=== PATIENT | female | born 1995 | race Caucasian/White ===

== ENCOUNTER 2022-04-16 20:28 | Emergency (ER) | payer OTHER, SELFPAY ==
--- NOTE | ~2022-04-16 | XR_ITS ---
EXAMINATION: PORTABLE CHEST 1 VIEW CLINICAL INFORMATION: chest pain . COMPARISON: 12/22/2017. TECHNIQUE: Portable frontal view of the chest was obtained. FINDINGS: The lungs are mildly hypoexpanded. No focal infiltrate, effusion, edema, or pneumothorax. Cardiac and mediastinal silhouettes are within normal limits for technique. No acute bony abnormality seen. XR/XR chest 1V IMPRESSION: No evidence of acute disease.
[2022-04-16 20:31] VITALS: BP 130/80; PULSE 97; RESP 18; TEMP 36.9; O2SAT 100; BMI 35.5
--- NOTE | 2022-04-16 20:34 | ED_ITS ---
HPI - General Adult General Chief complaint: Chest Pain Stated complaint: chest pain Time Seen by Provider: 04/16/22 21:56 Related Data Allergies Allergy/AdvReac Type Severity Reaction Status Date / Time No Known Allergies Allergy Verified 04/16/22 20:35 [facility] Social History Social History Advance Directives: No Advance Directives Information Provided: No Physical Exam ED Vital Signs: BMI result Body Mass Index 35.5 Course Course Course Narrative: RME: 26 yold female presents to the ED for heart palpitaions, chest discomfort that began today. patient admits to [facility] of anxiety. patient denies any leg swelling, calf negro, recent travel, or recent surgery. EkG, labs, and chest xray ordered Medical Decision Making Lab Data 04/16/22 20:51 04/16/22 20:51 Labs: Lab Results 04/16/22 04/16/22 04/16/22 Range/Units 20:51 20:51 20:51 WBC 11.6 H (4.8-10.8) X10*3/uL RBC 4.13 L (4.20-5.50) X10*6/uL Hgb 10.7 L (12.0-16.0) g/dl Hct 32.9 L (37.0-47.0) % MCV 79.7 L (80.0-98.0) fL MCH 25.9 L (27.0-33.0) pg MCHC 32.5 (31.0-35.0) g/dl RDW 14.4 (11.0-16.0) % Plt Count 353 (160-400) X10*3/uL MPV 9.6 (9.4-12.3) fL Immature Gran % (Auto) 0.6 H (0.0-0.4) % Neut % (Auto) 64.9 (45-73) % Lymph % (Auto) 26.4 (20-40) % [place] % (Auto) 5.9 (2-11) % Eos % (Auto) 1.9 (0-4) % Baso % (Auto) 0.3 (0-2) % Lymph # (Auto) 3.1 (1.2-4.9) X10*3/uL [place] # (Auto) 0.7 (0.1-1.2) X10*3/uL Eos # (Auto) 0.2 (0.0-0.4) X10*3/uL Baso # (Auto) 0.0 (0.0-0.2) X10*3/uL Abs Immat Gran (auto) 0.07 H (0.00-0.03) X10*3/uL Absolute Neuts (auto) 7.5 (2.0-8.3) x10*3/uL Absolute Nucleated RBC 0.000 (0.0-0.012) X10*3/uL Nucleated RBC % (auto) 0.0 (0.0-0.2) /100WBC PT 12.1 (10.0-13.1) SEC INR 1.1 (0.9-1.1) APTT 30.8 (26.0-36.4) SEC Sodium 139 (135-145) mmol/L Potassium 4.0 (3.3-5.1) mmol/L Chloride 106 (96-108) mmol/L Carbon Dioxide 24 (22-29) mmol/L Anion Gap 13 (12-20) BUN 11 (9-16) mg/dL Creatinine 0.81 (0.5-1.4) mg/dL Estim Creat Clear Calc 114.8 Estimated GFR > 60 Random Glucose 129 H (60-115) mg/dL Calcium 9.0 (8.4-10.2) mg/dL Total Bilirubin 0.3 (0.0-1.0) mg/dL AST 23 (5-31) U/L ALT 30 (0-31) U/L Alkaline Phosphatase 81 (39-117) U/L Troponin I High Sens (<3.5-17.0) ng/L B-Natriuretic Peptide (<100) pg/mL Total Protein 7.6 (6.5-8.0) g/dL Albumin 4.2 (3.5-5.0) g/dL TSH 2.07 (0.32-4.0) uIU/mL Beta HCG, Quant < 2 mIU/mL 04/16/22 04/16/22 Range/Units 20:51 20:51 WBC (4.8-10.8) X10*3/uL RBC (4.20-5.50) X10*6/uL Hgb (12.0-16.0) g/dl Hct (37.0-47.0) % MCV (80.0-98.0) fL MCH (27.0-33.0) pg MCHC (31.0-35.0) g/dl RDW (11.0-16.0) % Plt Count (160-400) X10*3/uL MPV (9.4-12.3) fL Immature Gran % (Auto) (0.0-0.4) % Neut % (Auto) (45-73) % Lymph % (Auto) (20-40) % [place] % (Auto) (2-11) % Eos % (Auto) (0-4) % Baso % (Auto) (0-2) % Lymph # (Auto) (1.2-4.9) X10*3/uL [place] # (Auto) (0.1-1.2) X10*3/uL Eos # (Auto) (0.0-0.4) X10*3/uL Baso # (Auto) (0.0-0.2) X10*3/uL Abs Immat Gran (auto) (0.00-0.03) X10*3/uL Absolute Neuts (auto) (2.0-8.3) x10*3/uL Absolute Nucleated RBC (0.0-0.012) X10*3/uL Nucleated RBC % (auto) (0.0-0.2) /100WBC PT (10.0-13.1) SEC INR (0.9-1.1) APTT (26.0-36.4) SEC Sodium (135-145) mmol/L Potassium (3.3-5.1) mmol/L Chloride (96-108) mmol/L Carbon Dioxide (22-29) mmol/L Anion Gap (12-20) BUN (9-16) mg/dL Creatinine (0.5-1.4) mg/dL Estim Creat Clear Calc Estimated GFR Random Glucose (60-115) mg/dL Calcium (8.4-10.2) mg/dL Total Bilirubin (0.0-1.0) mg/dL AST (5-31) U/L ALT (0-31) U/L Alkaline Phosphatase (39-117) U/L Troponin I High Sens < 3.5 (<3.5-17.0) ng/L B-Natriuretic Peptide < 10 (<100) pg/mL Total Protein (6.5-8.0) g/dL Albumin (3.5-5.0) g/dL TSH (0.32-4.0) uIU/mL Beta HCG, Quant mIU/mL Discharge Plan Discharge Clinical Impression: Anxiety Patient Disposition: Home, Self-Care Instructions: Anxiety (ED) Referrals: [facility] [Physician] - 2 days Interventions: ED Discharge Assessment Last Done: 04/17/22 00:16 Discharge Date/Time: 04/17/22 00:17
--- NOTE | 2022-04-16 20:41 | ECG_ITS ---
Test Reason : stemi Blood Pressure : / mmHG Vent. Rate : 096 BPM Atrial Rate : 096 BPM P-R Int : 150 ms QRS Dur : 086 ms QT Int : 348 ms P-R-T Axes : 057 019 021 degrees QTc Int : 439 ms Normal sinus rhythm Normal ECG When compared with ECG of 04-FEB-2018 23:09, No significant change was found Referred By: Linh López Electronically Signed By:DANISH KEN MD
[2022-04-16 20:56] LABS: MANUAL DIFF FLAG NO
[2022-04-16 20:57] LABS: Basophils Percent Auto 0.3 % (0-2); Eosinophils Absolute Auto 0.2 X10*3/uL (0.0-0.4); Eosinophils Percent Auto 1.9 % (0-4); Hematocrit 32.9 % (37.0-47.0); Hemoglobin 10.7 g/dl (12.0-16.0); Imm Gran Abs Auto 0.07 X10*3/uL (0.00-0.03); Imm Gran Pct Auto 0.6 % (0.0-0.4); Lymphocytes Absolute Auto 3.1 X10*3/uL (1.2-4.9); Lymphocytes Percent Auto 26.4 % (20-40); Mean Corpuscular HGB Conc 32.5 g/dl (31.0-35.0); Mean Corpuscular Hemoglobin 25.9 pg (27.0-33.0); Mean Corpuscular Volume 79.7 fL (80.0-98.0); Mean Platelet Volume 9.6 fL (9.4-12.3); Monocytes Absolute Auto 0.7 X10*3/uL (0.1-1.2); Monocytes Percent Auto 5.9 % (2-11); Neutrophils Absolute Auto 7.5 x10*3/uL (2.0-8.3); Neutrophils Percent Auto 64.9 % (45-73); Platelet Count 353 X10*3/uL (160-400); Red Blood Count 4.13 X10*6/uL (4.20-5.50); Red Cell Distribution Width 14.4 % (11.0-16.0); White Blood Count 11.6 X10*3/uL (4.8-10.8)
[2022-04-16 21:16] LABS: B Type Natriuretic Peptide < 10 pg/mL (<100)
[2022-04-16 21:17] LABS: Alanine Aminotransferase 30 U/L (0-31); Albumin Level 4.2 g/dL (3.5-5.0); Alkaline Phosphatase 81 U/L (39-117); Anion Gap 13 (12-20); Aspartate Amino Transferase 23 U/L (5-31); Bilirubin Total 0.3 mg/dL (0.0-1.0); Blood Urea Nitrogen 11 mg/dL (9-16); Carbon Dioxide 24 mmol/L (22-29); Chloride 106 mmol/L (96-108); Creatinine Clr Calc Pharmacy 114.8; Estimated Glomerular Filt Rate > 60; Glucose Random 129 mg/dL (60-115); Sodium 139 mmol/L (135-145); Total Protein 7.6 g/dL (6.5-8.0); Troponin-I High Sensitivity < 3.5 ng/L (<3.5-17.0)
[2022-04-16 21:29] LABS: INTERNATIONAL NORM RATIO 1.1 (0.9-1.1); Prothrombin Time 12.1 SEC (10.0-13.1)
[2022-04-16 21:31] LABS: Partial Thromboplastin Time 30.8 SEC (26.0-36.4)
[2022-04-16 21:34] LABS: HCG Quantitative < 2 mIU/mL; TSH reflex Free T4 2.07 uIU/mL (0.32-4.0)
--- NOTE | 2022-04-16 21:52 | PC.NURSE ---
pt c/o worsening chest pain that started two days ago; at its worst pain level 8/10
[2022-04-16 22:17] VITALS: BP 111/67; PULSE 91; RESP 24; TEMP 36.7; O2SAT 100
--- NOTE | 2022-04-17 00:13 | ED_ITS ---
HPI - Chest Pain General Chief Complaint: Chest Pain Stated Complaint: chest pain Time Seen by Provider: 04/16/22 21:56 History of Present Illness HPI narrative: Patient is a 26-year-old female with a history anxiety panic attacks. History of diabetes. Patient has been under lot of stress. She recently moved to [place] from [place]. She has 5 kids and currently lives in a retirement. Patient had sudden onset of palpitation. Jitteriness. Numbness. Very similar to previous bouts of panic attack. Lasted about 15-20 minutes. Symptoms gradually resolved. Patient presents to ED for further evaluation. She denies any chest pain. No shortness of breath at this point. No diaphoresis. No fever no chills. No history hypertension, high cholesterol, smoking, mi, family history of [place]. No recreational drug use. Related Data Allergies Allergy/AdvReac Type Severity Reaction Status Date / Time No Known Allergies Allergy Verified 04/16/22 20:35 Review of Systems Review of Systems: No fever no chills no cough no congestion or history symptoms Yes all other systems are reviewed and are negative [facility] Past Medical History Attestation statement: The following information was validated with the patient. Social History Social History Advance Directives: No Advance Directives Information Provided: No Physical Exam Vital Signs: Vital Signs: Last Vital Signs Temp 98.1 F 04/16/22 22:17 Pulse 91 04/16/22 22:17 Resp 24 H 04/16/22 22:17 BP 111/67 04/16/22 22:17 Pulse Ox 100 04/16/22 22:17 O2 Del Method 04/16/22 22:17 BMI result Body Mass Index 35.5 Appearance: Alert. Oriented X3. No acute distress. Eyes: Pupils equal, round and reactive to light. ENT: Pharynx normal. Neck: Normal inspection. Neck supple. No lymph nodes noted. No crepitus CVS: Normal heart rate and rhythm. Pulses normal. Normal S1 and S2 Respiratory: No respiratory distress. Breath sounds normal. No Wheezing. No rales Abdomen: Soft and nontender. No rigidity. No distention. good BS x4 Skin: Skin warm and dry. Normal skin color. Normal skin turgor. Extremities: No lower extremity edema. Neurovascular intact to all extremities. No Lacerations. No Rash Neuro: Oriented X 3. No motor deficit. No sensory deficit. Moving all extermities. No slurred speech Medical Decision Making Medical Decision Making [facility] Narrative: Patient has a history of panic attacks. Presents today with jitteriness palpitation shortness of breath feeling of doom similar to previous bouts of panic attacks. My interpretation of the patient's EKG shows a sinus pattern heart rate is 100 IA QRS QT within normal limits there is no acute ST segment elevation. Patient's troponin was negative. test is negative. TSH is normal. There is no evidence for hypothyroid. There is no evidence for related issues. Less likely is cardiac in origin as patient's troponins negative history is consistent with having a panic attack. Patient's chest x-ray did not show any focal infiltrate no pneumonia no pneumothorax. Symptoms points to patient having a panic attack. She is in stable condition with discharge home. Differential Diagnosis Differential Diagnoses: The differential diagnosis associated with the presen tation includes Anxiety, panic attack, pneumonia, CAD, palpitation, arrhythmia Lab Data [facility] Lab Attestation statement: I reviewed the patient's lab results. 04/16/22 20:51 04/16/22 20:51 Labs: Lab Results 04/16/22 04/16/22 04/16/22 Range/Units 20:51 20:51 20:51 WBC 11.6 H (4.8-10.8) X10*3/uL RBC 4.13 L (4.20-5.50) X10*6/uL Hgb 10.7 L (12.0-16.0) g/dl Hct 32.9 L (37.0-47.0) % MCV 79.7 L (80.0-98.0) fL MCH 25.9 L (27.0-33.0) pg MCHC 32.5 (31.0-35.0) g/dl RDW 14.4 (11.0-16.0) % Plt Count 353 (160-400) X10*3/uL MPV 9.6 (9.4-12.3) fL Immature Gran % (Auto) 0.6 H (0.0-0.4) % Neut % (Auto) 64.9 (45-73) % Lymph % (Auto) 26.4 (20-40) % [place] % (Auto) 5.9 (2-11) % Eos % (Auto) 1.9 (0-4) % Baso % (Auto) 0.3 (0-2) % Lymph # (Auto) 3.1 (1.2-4.9) X10*3/uL [place] # (Auto) 0.7 (0.1-1.2) X10*3/uL Eos # (Auto) 0.2 (0.0-0.4) X10*3/uL Baso # (Auto) 0.0 (0.0-0.2) X10*3/uL Abs Immat Gran (auto) 0.07 H (0.00-0.03) X10*3/uL Absolute Neuts (auto) 7.5 (2.0-8.3) x10*3/uL Absolute Nucleated RBC 0.000 (0.0-0.012) X10*3/uL Nucleated RBC % (auto) 0.0 (0.0-0.2) /100WBC PT 12.1 (10.0-13.1) SEC INR 1.1 (0.9-1.1) APTT 30.8 (26.0-36.4) SEC Sodium 139 (135-145) mmol/L Potassium 4.0 (3.3-5.1) mmol/L Chloride 106 (96-108) mmol/L Carbon Dioxide 24 (22-29) mmol/L Anion Gap 13 (12-20) BUN 11 (9-16) mg/dL Creatinine 0.81 (0.5-1.4) mg/dL Estim Creat Clear Calc 114.8 Estimated GFR > 60 Random Glucose 129 H (60-115) mg/dL Calcium 9.0 (8.4-10.2) mg/dL Total Bilirubin 0.3 (0.0-1.0) mg/dL AST 23 (5-31) U/L ALT 30 (0-31) U/L Alkaline Phosphatase 81 (39-117) U/L Troponin I High Sens (<3.5-17.0) ng/L B-Natriuretic Peptide (<100) pg/mL Total Protein 7.6 (6.5-8.0) g/dL Albumin 4.2 (3.5-5.0) g/dL TSH 2.07 (0.32-4.0) uIU/mL Beta HCG, Quant < 2 mIU/mL 04/16/22 04/16/22 Range/Units 20:51 20:51 WBC (4.8-10.8) X10*3/uL RBC (4.20-5.50) X10*6/uL Hgb (12.0-16.0) g/dl Hct (37.0-47.0) % MCV (80.0-98.0) fL MCH (27.0-33.0) pg MCHC (31.0-35.0) g/dl RDW (11.0-16.0) % Plt Count (160-400) X10*3/uL MPV (9.4-12.3) fL Immature Gran % (Auto) (0.0-0.4) % Neut % (Auto) (45-73) % Lymph % (Auto) (20-40) % [place] % (Auto) (2-11) % Eos % (Auto) (0-4) % Baso % (Auto) (0-2) % Lymph # (Auto) (1.2-4.9) X10*3/uL [place] # (Auto) (0.1-1.2) X10*3/uL Eos # (Auto) (0.0-0.4) X10*3/uL Baso # (Auto) (0.0-0.2) X10*3/uL Abs Immat Gran (auto) (0.00-0.03) X10*3/uL Absolute Neuts (auto) (2.0-8.3) x10*3/uL Absolute Nucleated RBC (0.0-0.012) X10*3/uL Nucleated RBC % (auto) (0.0-0.2) /100WBC PT (10.0-13.1) SEC INR (0.9-1.1) APTT (26.0-36.4) SEC Sodium (135-145) mmol/L Potassium (3.3-5.1) mmol/L Chloride (96-108) mmol/L Carbon Dioxide (22-29) mmol/L Anion Gap (12-20) BUN (9-16) mg/dL Creatinine (0.5-1.4) mg/dL Estim Creat Clear Calc Estimated GFR Random Glucose (60-115) mg/dL Calcium (8.4-10.2) mg/dL Total Bilirubin (0.0-1.0) mg/dL AST (5-31) U/L ALT (0-31) U/L Alkaline Phosphatase (39-117) U/L Troponin I High Sens < 3.5 (<3.5-17.0) ng/L B-Natriuretic Peptide < 10 (<100) pg/mL Total Protein (6.5-8.0) g/dL Albumin (3.5-5.0) g/dL TSH (0.32-4.0) uIU/mL Beta HCG, Quant mIU/mL Independent Interpretation I performed an independent interpretation of an: EKG Interpretation: Sinus pattern heart rate is 100 IA QRS QT within normal limits there is no acute ST segment elevation noted Chronic Conditions Patient?s care impacted by: Diabetes Discharge Plan Discharge Clinical Impression: Anxiety Patient Disposition: Home, Self-Care Instructions: Anxiety (ED) [facility]
== END 2022-04-17 00:17 | disposition home or self-care (01) ==
PROVIDERS: Physician Assistant; Emergency Provider Emergency Medicine Emergency Medical Services
DX: F41.9 Anxiety disorder, unspecified (principal); R06.02 Shortness of breath; E11.9 Type 2 diabetes mellitus without complications
CPT/HCPCS: 36415; 71045; 80053; 83880; 84443; 84484; 84702; 85025; 85610; 85730; 93005; 99283; 99284

== ENCOUNTER 2022-05-06 16:46 | Emergency (ER) | payer OTHER, SELFPAY ==
[2022-05-06 17:05] VITALS: BP 137/92; PULSE 84; RESP 18; TEMP 36.6; O2SAT 99; BMI 36.3
[2022-05-06 17:48] LABS: MANUAL DIFF FLAG NO
[2022-05-06 17:59] LABS: Basophils Percent Auto 0.3 % (0-2); Eosinophils Absolute Auto 0.1 X10*3/uL (0.0-0.4); Eosinophils Percent Auto 0.8 % (0-4); Hematocrit 33.2 % (37.0-47.0); Hemoglobin 10.5 g/dl (12.0-16.0); Imm Gran Abs Auto 0.06 X10*3/uL (0.00-0.03); Imm Gran Pct Auto 0.5 % (0.0-0.4); Lymphocytes Absolute Auto 2.9 X10*3/uL (1.2-4.9); Lymphocytes Percent Auto 25.3 % (20-40); Mean Corpuscular HGB Conc 31.6 g/dl (31.0-35.0); Mean Corpuscular Hemoglobin 25.7 pg (27.0-33.0); Mean Corpuscular Volume 81.2 fL (80.0-98.0); Mean Platelet Volume 9.9 fL (9.4-12.3); Monocytes Absolute Auto 0.6 X10*3/uL (0.1-1.2); Neutrophils Absolute Auto 7.9 x10*3/uL (2.0-8.3); Neutrophils Percent Auto 68.1 % (45-73); Platelet Count 365 X10*3/uL (160-400); Red Blood Count 4.09 X10*6/uL (4.20-5.50); Red Cell Distribution Width 14.3 % (11.0-16.0); White Blood Count 11.6 X10*3/uL (4.8-10.8)
[2022-05-06 18:00] LABS: Appearance Urine Cloudy; Color Urine Yellow; Glucose Urine UA Negative (Negative); Leukocyte Esterase Urine Moderate (2+) (Negative); Nitrite Urine Positive (Negative); PH 5.5 (5.0-9.0); Specific Gravity - Urine 1.025 (1.005-1.025); UMIC TRIGGER UACC YES; Urine Blood Large (3+) (Negative); Urine Ketones Negative (Negative); Urine Protein 100 (2+) mg/dL (Neg-Trace)
[2022-05-06 18:12] LABS: Alanine Aminotransferase 19 U/L (0-31); Albumin Level 4.1 g/dL (3.5-5.0); Alkaline Phosphatase 69 U/L (39-117); Anion Gap 13 (12-20); Aspartate Amino Transferase 18 U/L (5-31); Bilirubin Total 0.5 mg/dL (0.0-1.0); Blood Urea Nitrogen 8 mg/dL (9-16); Carbon Dioxide 24 mmol/L (22-29); Chloride 108 mmol/L (96-108); Creatinine Clr Calc Pharmacy 125.5; Estimated Glomerular Filt Rate > 60; Glucose Random 131 mg/dL (60-115); Potassium 4.1 mmol/L (3.3-5.1); Sodium 141 mmol/L (135-145); Total Protein 7.5 g/dL (6.5-8.0)
[2022-05-06 18:14] LABS: HCG Quantitative < 2 mIU/mL
[2022-05-06 18:24] LABS: Bacteria Urine 4+ (None Seen); Hyaline Casts Urine 0-2 /LPF (0-2); RBC Urine >20 /HPF (0-2); UACC Culture Trigger YES; WBC Urine >50 /HPF (0-5)
--- NOTE | 2022-05-06 18:31 | ED_ITS ---
HPI - Abdominal Pain General Chief Complaint: Abdominal Pain Stated Complaint: Blood in urine Time Seen by Provider: 05/06/22 18:27 Source: patient Mode of arrival: ambulatory Limitations: no limitations History of Present Illness HPI narrative: Patient is a 26-year-old female who presents emergency department for evaluation of genitourinary symptoms. She reports onset of symptoms 2 days ago. Suprapubic pain/discomfort, urinary frequency, dysuria, hematuria, and presence of clots, however she is also at the end of her menstrual cycle. She denies any history of renal calculi. Denies fevers, chills, nausea vomiting, back pain. Related Data Previous Rx's Medication Instructions Recorded cefuroxime axetil 500 mg tablet 500 mg PO BID #14 tabs 05/06/22 phenazopyridine 200 mg tablet 200 mg PO TID PRN pain 6 doses #6 05/06/22 (Pyridium) tabs Allergies Allergy/AdvReac Type Severity Reaction Status Date / Time No Known Allergies Allergy Verified 04/16/22 20:35 Review of Systems Review of Systems Yes all other systems are reviewed and are negative [facility] Past Medical History Attestation statement: The following information was validated with the patient. Source: old records reviewed Social History Social History Advance Directives: No Advance Directives Information Provided: Yes Physical Exam ED Vital Signs: Vital Signs - 24 hr 05/06/22 17:05 Temperature 97.8 F Pulse Rate 84 Respiratory Rate 18 Blood Pressure 137/92 H Pulse Oximetry 99 Oxygen Delivery Method Room Air BMI result Body Mass Index 36.3 Appearance: Alert.?Oriented to person, place and time. No acute distress.?Normal affect. Neck: Normal inspection.? Neck supple.?? CVS: Heart sounds normal. Normal heart rate and rhythm.? Pulses normal.?? Respiratory: No respiratory distress.? Lung sounds clear to auscultation bilaterally?? Abdomen: Soft and non-tender. Normoactive bowel sounds. Skin: Skin warm and dry.? Normal skin color.? Neuro: Moves all extremities spontaneously. Sensation intact bilaterally. Ambulates with normal steady gait. Medical Decision Making Medical Decision Making MDM Narrative: Patient is a 26-year-old female with no reported past medical history presents to the emergency department for evaluation of genitourinary symptoms. At the time my examination she is overall well-appearing, nontoxic, vitals within normal limits afebrile without tachycardia.. Abdominal examination is benign, no peritoneal signs, no rigidity, no guarding. Reviewed labs obtained from initial triage, CBC revealing a mild leukocytosis obtained anemia consistent wit h baseline not needing any transfusion criteria. CMP is overall unremarkable. HCG is negative. Urinalysis consistent with urinary tract infection. Discussed with patient at this time plan of care for discharge home, sent prescription for antibiotic and Pyridium to patient's pharmacy. Reviewed worrisome signs and symptoms that would warrant re-evaluation in the emergency department. Advised outpatient follow-up with her primary care provider as for persistent symptoms. She verbalized understanding. Differential Diagnosis Differential Diagnoses: The differential diagnosis associated with the presentation includes (Urinary tract infection, pyelonephritis, nephrolithiasis, ureteral calculi, hydronephrosis, pelvic inflammatory disease, ) Lab Data MDM Lab Attestation statement: I reviewed the patient's lab results. 05/06/22 17:44 05/06/22 17:44 Labs: Lab Results 05/06/22 05/06/22 05/06/22 Range/Units 17:44 17:44 17:44 WBC 11.6 H (4.8-10.8) X10*3/uL RBC 4.09 L (4.20-5.50) X10*6/uL Hgb 10.5 L (12.0-16.0) g/dl Hct 33.2 L (37.0-47.0) % MCV 81.2 (80.0-98.0) fL MCH 25.7 L (27.0-33.0) pg MCHC 31.6 (31.0-35.0) g/dl RDW 14.3 (11.0-16.0) % Plt Count 365 (160-400) X10*3/uL MPV 9.9 (9.4-12.3) fL Immature Gran % (Auto) 0.5 H (0.0-0.4) % Neut % (Auto) 68.1 (45-73) % Lymph % (Auto) 25.3 (20-40) % [place] % (Auto) 5.0 (2-11) % Eos % (Auto) 0.8 (0-4) % Baso % (Auto) 0.3 (0-2) % Lymph # (Auto) 2.9 (1.2-4.9) X10*3/uL [place] # (Auto) 0.6 (0.1-1.2) X10*3/uL Eos # (Auto) 0.1 (0.0-0.4) X10*3/uL Baso # (Auto) 0.0 (0.0-0.2) X10*3/uL Abs Immat Gran (auto) 0.06 H (0.00-0.03) X10*3/uL Absolute Neuts (auto) 7.9 (2.0-8.3) x10*3/uL Absolute Nucleated RBC 0.000 (0.0-0.012) X10*3/uL Nucleated RBC % (auto) 0.0 (0.0-0.2) /100WBC Sodium 141 (135-145) mmol/L Potassium 4.1 (3.3-5.1) mmol/L Chloride 108 (96-108) mmol/L Carbon Dioxide 24 (22-29) mmol/L Anion Gap 13 (12-20) BUN 8 L (9-16) mg/dL Creatinine 0.75 (0.5-1.4) mg/dL Estim Creat Clear Calc 125.5 Estimated GFR > 60 Random Glucose 131 H (60-115) mg/dL Calcium 9.0 (8.4-10.2) mg/dL Total Bilirubin 0.5 (0.0-1.0) mg/dL AST 18 (5-31) U/L ALT 19 (0-31) U/L Alkaline Phosphatase 69 (39-117) U/L Total Protein 7.5 (6.5-8.0) g/dL Albumin 4.1 (3.5-5.0) g/dL Beta HCG, Quant < 2 mIU/mL Urine Color Yellow Urine Appearance Cloudy Urine pH 5.5 (5.0-9.0) Ur Specific [place] 1.025 (1.005-1.025) Urine Protein 100 (2+) H (Neg-Trace) mg/dL Urine Glucose (UA) Negative (Negative) mg/dL Urine Ketones Negative (Negative) mg/dL Urine Blood Large (3+) H (Negative) Urine Nitrite Positive H (Negative) Ur Leukocyte Esterase Moderate (2+) H (Negative) Urine RBC >20 H (0-2) /HPF Urine WBC >50 H (0-5) /HPF Ur Squamous Epith Cells 3-5 (0-2) /HPF Urine Bacteria 4+ (None Seen) Hyaline Casts 0-2 (0-2) /LPF Urine Yeast Present External Record Review External record reviewed: Office record Tests considered The following testing was considered but not selected: I considered CT imaging for evaluation of pyelonephritis, nephrolithiasis, hydronephrosis, however no CVA tenderness upon examination, low suspicion at this time. CT imaging therefore deferred. Prescription Management I considered prescription management with: Pain Medication and Antibiotic Discharge Plan Discharge Clinical Impression: Urinary tract infection Patient Disposition: Home, Self-Care Instructions: Urinary Tract Infection in Women (ED) Additional Instructions: Please be sure to stay out well hydrated, drink plenty of fluid. A prescription for antibiotic was sent to your pharmacy to treat urinary tract infection, please complete this entire course. If you are currently taking any oral contraception, please use alternative methods for control while taking antibiotics in for 1 week after. You may return back to emergency department any new or worsening symptoms or co ncerns. Prescriptions: New cefuroxime axetil 500 mg tablet 500 mg PO BID Qty: 14 0RF phenazopyridine [Pyridium] 200 mg tablet 200 mg PO TID PRN (Reason: pain) Qty: 6 0RF Referrals: Physician,None [Primary Care Provider] -
[2022-05-06 18:48] VITALS: BP 136/72; PULSE 72; RESP 16; TEMP 36.3; O2SAT 100
== END 2022-05-06 18:54 | disposition home or self-care (01) ==
PROVIDERS: Emergency Provider Emergency Medicine Emergency Medical Services
DX: R31.9 Hematuria, unspecified (principal); N39.0 Urinary tract infection, site not specified; Z79.899 Other long term (current) drug therapy
CPT/HCPCS: 36415; 80053; 81001; 84702; 85025; 87086; 87088; 87186; 99283

== ENCOUNTER 2022-06-03 04:27 | Emergency (ER) | payer OTHER, SELFPAY ==
--- NOTE | ~2022-06-03 | CT_ITS ---
EXAMINATION: CT HEAD WITHOUT CONTRAST CLINICAL INFORMATION: Headache. COMPARISON: None available. TECHNIQUE: Contiguous axial imaging was performed from the skull base to vertex without intravenous administration of contrast. This CT examination was performed using dose optimization techniques as appropriate, variously including the following: *Automated exposure control *Adjustment of mA and/or kV according to patient size (this includes techniques or standardized protocols for targeted exams where dose is matched to indication/reason for exam; i.e. extremities or head) *Use of iterative reconstruction technique DLP: 661 mGy-cm FINDINGS: There is no acute intra-axial, extra-axial bleed, masses or midline shift. There is no acute infarction evolution. No edema. The lateral ventricles are symmetrical in size and configuration without enlargement. No abnormality seen in the posterior fossa. Bone windows reveal no calvarial abnormality. Bilateral paranasal sinuses and mastoid air cells are well-aerated. The scalp soft tissues are normal. CT/CT head/brain wo IV con IMPRESSION: No acute intracranial process seen.
[2022-06-03 04:45] VITALS: BP 121/76; PULSE 78; RESP 16; TEMP 36.6; O2SAT 98; BMI 37.2
[2022-06-03 07:42] VITALS: BP 102/65; PULSE 78; RESP 16; TEMP 36.9; O2SAT 100
--- NOTE | 2022-06-03 07:56 | ED_ITS ---
HPI - Headache General Chief Complaint: Headache Stated Complaint: R sided severe headache, Nausea, dizziness Time Seen by Provider: 06/03/22 07:43 Source: patient Mode of arrival: ambulatory Limitations: no limitations History of Present Illness HPI Narrative: 26-year-old female came in for evaluation of right-sided headache with nausea and dizziness. Patient's symptoms started about a week ago with intermittent right side headache which is intermittent, localized to the right side of the head, associated with dizziness especially if she moves her head on look up or down, no photophobia, no neck stiffness, no fever, no chills, no nasal drainage. Headache is more severe as the day wear on. Family history of migraine sister and mother. No known history of young in the family or intracranial bleed or tumor. Related Data Previous Rx's Medication Instructions Recorded cefuroxime axetil 500 mg tablet 500 mg PO BID #14 tabs 05/06/22 phenazopyridine 200 mg tablet 200 mg PO TID PRN pain 6 doses #6 05/06/22 (Pyridium) tabs amoxicillin 875 mg-potassium 1 tab PO Q12H #14 tabs 06/03/22 clavulanate 125 mg tablet ibuprofen 600 mg tablet 600 mg PO TID PRN pain #10 tabs 06/03/22 Allergies Allergy/AdvReac Type Severity Reaction Status Date / Time No Known Allergies Allergy Verified 04/16/22 20:35 Review of Systems Review of Systems: All other systems are reviewed and are negative Constitutional: Reports as per HPI and Reports no additional constitutional complaints Eyes: Reports as per HPI and Reports no additional eye complaints Reports system reviewed and no additional complaints, except as documented Cardiovascular: Reports as per HPI and Reports no additional cardiovascular complaints Respiratory: Reports as per HPI and Reports no additional respiratory complaints Gastrointestinal: Reports as per HPI and Reports no additional gastrointestinal complaints Genitourinary: Reports no additional female genitourinary complaints Musculoskeletal: Reports no additional musculoskeletal complaints Skin/Breast: Reports system reviewed and no additional complaints, except as docu Psychiatric: Reports no additional psychiatric complaints Endocrine: Reports no additional endocrine complaints Hematologic/Lymphatic: Reports no additional hematologic/lymphatic complaints Allergic/Immunologic: Reports no additional allergic/immunologic complaints Reports system reviewed and no additional complaints, except as documented and Reports Abnormal speech present [facility] Social History Social History Alcohol intake: never Smoked in Last 30 Days: No Use of substances other than those prescribed or required for medical reasons: No Advance Directives: No Advance Directives Information Provided: No Physical Exam Vital Signs: Vital Signs: Last Vital Signs Temp 98.5 F 06/03/22 07:42 Pulse 78 06/03/22 07:42 Resp 16 06/03/22 07:42 BP 102/65 06/03/22 07:42 Pulse Ox 100 06/03/22 07:42 O2 Del Method Room Air 06/03/22 07:42 BMI result Body Mass Index 37.2 Vital signs have been reviewed as appeared to be correct. Blood pressure normal. Heart rate normal. Respiration rate normal. Temperature normal. Oxygen saturation normal. Appearance: Alert. Oriented X3. No acute distress. Head: Normal external exam. Normocephalic. Atraumatic. No Teran signs noted. No raccoon eyes noted, tenderness to percussion over the right frontal sinus and right maxillary sinuses, no photophobia, no neck stiffness. Eyes: PERRLA. EOMI. Conjunctiva and sclera normal. Eyelids normal. No photophobia. ENT: TM's Normal. Pharynx normal. Uvula midline. Moist mucous membranes. No trismus noted. No drooling noted. No muffled voice noted. Neck: Normal inspection. Neck supple. FROM. No adenopathy. Thyroid Normal. No meningeal signs. No neck mass noted. CVS: Normal heart rate and rhythm. Heart sound normal. No murmurs noted. Pulses normal throughout. Respiratory: No respiratory distress. Painless inspiration. Breath sounds normal. No wheezes/rales/rhonchi noted. Chest nontender. No accessory muscle usage noted or decreased air movement noted. Abdomen: Soft and nontender. Bowel sounds normal in all 4 quadrants. No distention noted. No organomegaly noted. No visible injury noted. Back: No CVA tenderness. Full range of motion noted. Skin: Skin warm and dry. Normal skin color. Normal skin turgor. No rashes/lesions/lacerations noted. Extremities: No lower extremity edema. Extremities exhibit normal range of motion. Extremities nontender. Neuro: Oriented X 3. Cranial nerve exam: II-XII are grossly intact No motor deficit. No sensory deficit. Reflexes normal. Course Course Course Narrative: Slight improvement after given Tylenol, physical exam is consistent with right frontal sinusitis causing headache to the right side of the patient, no meningismus sign, slight elevation of SER and CRP secondary to sinus infection, no tenderness over the temporal area no visual change or photophobia or diplopia making temporal arthritis is not likely. Start the patient on Augmentin and NSAIDs. Medications Administered Discontinued Medications Generic Name Dose Route Start Last Admin Trade Name Chirag PRN Reason Stop Dose Admin Acetaminophen 650 mg 06/03/22 07:52 06/03/22 09:00 Acetaminophen 325 Mg Tablet PO 06/03/22 07:53 650 mg ONCE ONE Administration Amoxicillin/Clavulanate Potassium 875 mg 06/03/22 07:55 06/03/22 08:04 Amoxicillin/Potassium Clav 875 Mg Tablet PO 06/03/22 07:56 875 mg ONCE ONE Administration Meclizine HCl 25 mg 06/03/22 07:52 06/03/22 08:04 Meclizine Hcl 25 Mg Tablet PO 06/03/22 07:53 25 mg ONCE ONE Administration Medical Decision Making Differential Diagnosis Differential Diagnoses: The differential diagnosis associated with the presentation includes (Sinusitis, migraine, meningitis, ear infection, temper arthritis.) Lab Data MDM Lab Attestation statement: I reviewed the patient's lab results. 06/03/22 08:15 Labs: Lab Results 06/03/22 06/03/22 06/03/22 Range/Units 08:15 08:15 08:15 WBC 8.1 (4.8-10.8) X10*3/uL RBC 4.06 L (4.20-5.50) X10*6/uL Hgb 10.4 L (12.0-16.0) g/dl Hct 32.8 L (37.0-47.0) % MCV 80.8 (80.0-98.0) fL MCH 25.6 L (27.0-33.0) pg MCHC 31.7 (31.0-35.0) g/dl RDW 14.0 (11.0-16.0) % Plt Count 343 (160-400) X10*3/uL MPV 9.5 (9.4-12.3) fL Immature Gran % (Auto) 0.4 (0.0-0.4) % Neut % (Auto) 59.7 (45-73) % Lymph % (Auto) 32.6 (20-40) % [place] % (Auto) 5.7 (2-11) % Eos % (Auto) 1.2 (0-4) % Baso % (Auto) 0.4 (0-2) % Lymph # (Auto) 2.6 (1.2-4.9) X10*3/uL [place] # (Auto) 0.5 (0.1-1.2) X10*3/uL Eos # (Auto) 0.1 (0.0-0.4) X10*3/uL Baso # (Auto) 0.0 (0.0-0.2) X10*3/uL Abs Immat Gran (auto) 0.03 (0.00-0.03) X10*3/uL Absolute Neuts (auto) 4.8 (2.0-8.3) x10*3/uL Absolute Nucleated RBC 0.000 (0.0-0.012) X10*3/uL Nucleated RBC % (auto) 0.0 (0.0-0.2) /100WBC ESR 25 H (0-20) MM/HR C-Reactive Protein 0.71 H (< or = 0.50) mg/dL Independent Interpretation I performed an independent interpretation of an: CT Scan (Head: No acute intracranial pathology.) Radiology Impression Discussion of test interpretation with radiology: I have reviewed the radiologist's reading. Prescription Management I considered prescription management with: Pain Medication and Antibiotic Discharge Plan Discharge Clinical Impression: Headache, Sinusitis Patient Disposition: Home, Self-Care Instructions: Sinusitis (ED) Prescriptions: New amoxicillin-pot clavulanate 875-125 mg tablet 1 tab PO Q12H Qty: 14 0RF ibuprofen 600 mg tablet 600 mg PO TID PRN (Reason: pain) Qty: 10 0RF No Action cefuroxime axetil 500 mg tablet 500 mg PO BID Qty: 14 0RF phenazopyridine [Pyridium] 200 mg tablet 200 mg PO TID PRN (Reason: pain) Qty: 6 0RF Referrals: [place],[facility] [Primary Care Provider] - Stand Alone Forms: Work/School Release
--- NOTE | 2022-06-03 07:58 | PC.NURSE ---
Patient calm and cooperative, alert and oriented. Patient presents with headaches and feeling dizzy when she moves her head. This has been a daily occurrence for the past week or so; patient states she didn't seek treatment earlier because she has kids at home which makes it hard to get to the hospital sometimes. Patient states that she has some nausea but no vomiting. Mom and sister have a history of migraines but this is new for her.
[2022-06-03] MEDS: Meclizine HCl 25 MG TABLET PO (08:04)
[2022-06-03] MEDS: Amoxicillin/Potassium Clav 875 MG TABLET PO (08:04)
--- NOTE | 2022-06-03 08:19 | PC.NURSE ---
IV obtained and blood work drawn. Patient at CT at this time.
[2022-06-03 08:22] LABS: MANUAL DIFF FLAG NO
[2022-06-03 08:24] LABS: Basophils Percent Auto 0.4 % (0-2); Eosinophils Absolute Auto 0.1 X10*3/uL (0.0-0.4); Eosinophils Percent Auto 1.2 % (0-4); Hematocrit 32.8 % (37.0-47.0); Hemoglobin 10.4 g/dl (12.0-16.0); Imm Gran Abs Auto 0.03 X10*3/uL (0.00-0.03); Imm Gran Pct Auto 0.4 % (0.0-0.4); Lymphocytes Absolute Auto 2.6 X10*3/uL (1.2-4.9); Lymphocytes Percent Auto 32.6 % (20-40); Mean Corpuscular HGB Conc 31.7 g/dl (31.0-35.0); Mean Corpuscular Hemoglobin 25.6 pg (27.0-33.0); Mean Corpuscular Volume 80.8 fL (80.0-98.0); Mean Platelet Volume 9.5 fL (9.4-12.3); Monocytes Absolute Auto 0.5 X10*3/uL (0.1-1.2); Monocytes Percent Auto 5.7 % (2-11); Neutrophils Absolute Auto 4.8 x10*3/uL (2.0-8.3); Neutrophils Percent Auto 59.7 % (45-73); Platelet Count 343 X10*3/uL (160-400); Red Blood Count 4.06 X10*6/uL (4.20-5.50); White Blood Count 8.1 X10*3/uL (4.8-10.8)
[2022-06-03 08:41] LABS: C Reactive Protein 0.71 mg/dL (< or = 0.50)
[2022-06-03] MEDS: Acetaminophen 325 MG TABLET 650 MG PO (09:00)
[2022-06-03 09:03] LABS: Erythrocyte Sedimentation Rate 25 MM/HR (0-20)
[2022-06-03 10:37] VITALS: BP 108/56; PULSE 63; RESP 16; TEMP 36.8; O2SAT 100
== END 2022-06-03 10:45 | disposition home or self-care (01) ==
PROVIDERS: Emergency Provider Emergency Medicine
DX: R42 Dizziness and giddiness (principal); R51.9 Headache, unspecified; J32.9 Chronic sinusitis, unspecified; Z79.899 Other long term (current) drug therapy
CPT/HCPCS: 36415; 70450; 85025; 85652; 86140; 99284

== ENCOUNTER 2022-12-21 15:12 | Emergency (ER) | payer OTHER, SELFPAY ==
[2022-12-21 15:51] VITALS: BP 118/72; PULSE 69; RESP 19; TEMP 36.1; O2SAT 98; BMI 38.4
--- NOTE | 2022-12-21 15:56 | ED.GENADULT ---
HPI - General Adult General Chief complaint: Animal Bite Stated complaint: stung by bee Time Seen by Provider: 12/21/22 15:56 Source: patient, RN notes reviewed and old records reviewed Mode of arrival: ambulatory Limitations: no limitations History of Present Illness HPI narrative: 26-year-old female presents for evaluation of a bee sting. Patient reports that she was stung in the right thigh just prior to arrival She has not been stung before and does not know if she is allergic she wanted to come to get checked out She reports some itching in her throat but denies any swelling, difficulty breathing or swallowing She has not taken any medications to help alleviate her symptoms Related Data Previous Rx's Medication Instructions Recorded cefuroxime axetil 500 mg tablet 500 mg PO BID #14 tabs 05/06/22 phenazopyridine 200 mg tablet 200 mg PO TID PRN pain 6 doses #6 05/06/22 (Pyridium) tabs amoxicillin 875 mg-potassium 1 tab PO Q12H #14 tabs 06/03/22 clavulanate 125 mg tablet ibuprofen 600 mg tablet 600 mg PO TID PRN pain #10 tabs 06/03/22 Allergies Allergy/AdvReac Type Severity Reaction Status Date / Time No Known Allergies Allergy Verified 04/16/22 20:35 Review of Systems ENT: Denies throat swelling and Denies tongue swelling Cardiovascular: Cardiovascular: Denies dyspnea Respiratory: Respiratory: Denies cough and Denies dyspnea Gastrointestinal: Gastrointestinal: Denies nausea and Denies vomiting Integumentary/Breasts: Skin/Breast: Denies rash Allergic/Immunologic: Allergic/Immunologic: Denies throat swelling and Denies tongue swelling PMFSH Social History Social History Alcohol intake: never Physical Exam ED Vital Signs: Vital Signs - 24 hr 12/21/22 15:51 Temperature 97.0 F Pulse Rate 69 Respiratory Rate 19 Blood Pressure 118/72 Pulse Oximetry 98 Oxygen Delivery Method Room Air BMI result Body Mass Index 38.4 Const General: healthy appearing, comfortable, no acute distress, alert and awake Nutritional Appearance: well nourished Orientation/consciousness: patient oriented x3 HENMT Head: Yes normocephalic and Yes atraumatic Eyes Eyelids: Yes eyelids normal Conjunctivae: conjunctivae normal Sclerae: sclerae normal Corneas: corneas normal Pupils: Equal, round and reactive pupils present EOM: EOMs intact bilaterally Neck Neck: Yes full ROM Resp Effort & Inspection: normal respiratory effort, able to speak in complete sentences, no audible wheezes and not labored Auscultation: clear to auscultation bilaterally Skin Other: Small puncture wound with minimal erythema to the right medial thigh in the area that the patient indicates she was stone General skin exam: elasticity normal Neuro General: patient oriented x3 Cranial nerves: Yes Equal, round and reactive pupils present and Yes Bilaterally intact EOM present Cognition (Neuro): normal cognition Extrem Other: Moving all extremities well without any obvious deformities Medical Decision Making Medical Decision Making MDM Narrative: Patient has an obvious bee sting/insect bite to the right thigh. She has no evidence of allergic reaction or anaphylaxis. She will be discharged Differential Diagnosis Differential Diagnoses: The differential diagnosis associated with the presentation includes Bee sting Insect bite Allergic reaction Puncture wound Discharge Plan Discharge Clinical Impression: Bee sting Patient Disposition: Home, Self-Care Instructions: Insect Bite or Sting (ED) Additional Instructions: You have no evidence of allergic reaction. You may take Benadryl if you have any itching or swelling, but I do not appreciate and swelling on exam Prescriptions: No Action cefuroxime axetil 500 mg tablet 500 mg PO BID Qty: 14 0RF phenazopyridine [Pyridium] 200 mg tablet 200 mg PO TID PRN (Reason: pain) Qty: 6 0RF amoxicillin-pot clavulanate 875-125 mg tablet 1 tab PO Q12H Qty: 14 0RF ibuprofen 600 mg tablet 600 mg PO TID PRN (Reason: pain) Qty: 10 0RF
== END 2022-12-21 16:13 | disposition home or self-care (01) ==
PROVIDERS: Emergency Provider Emergency Medicine
DX: T63.441A Toxic effect of venom of bees, accidental (unintentional), initial encounter (principal); L29.9 Pruritus, unspecified; Y92.9 Unspecified place or not applicable
CPT/HCPCS: 99282

== ENCOUNTER 2022-12-22 22:36 | Emergency (ER) | payer OTHER, SELFPAY ==
[2022-12-22 23:12] VITALS: BP 122/69; PULSE 88; RESP 18; TEMP 36.6; O2SAT 100; BMI 38.6
--- NOTE | 2022-12-23 00:35 | ED.SKABFB ---
HPI - Skin/Abscess/Foreign Bdy General Chief complaint: Skin/Abscess/Foreign Body Stated complaint: Bee sting, was seen yesterday got worse Time Seen by Provider: 12/23/22 00:15 Source: patient and old records reviewed Mode of arrival: ambulatory Limitations: no limitations History of Present Illness HPI narrative: 27 yo female with pre-diabetes seen yesterday for R thigh insect bite sent home with reassurance she comes back now with red hot area complaint: rash and insect bite/sting Onset (ago): day(s) (1) Tetanus up to date: yes Location: RLE Severity: moderate Quality: aching Pain Consistency: constant Relieving factors: none Exacerbating factors: none Context: witnessed insect bite Associated symptoms: denies other symptoms Treatments prior to arrival: none Related Data Previous Rx's Medication Instructions Recorded cefuroxime axetil 500 mg tablet 500 mg PO BID #14 tabs 05/06/22 phenazopyridine 200 mg tablet 200 mg PO TID PRN pain 6 doses #6 05/06/22 (Pyridium) tabs amoxicillin 875 mg-potassium 1 tab PO Q12H #14 tabs 06/03/22 clavulanate 125 mg tablet ibuprofen 600 mg tablet 600 mg PO TID PRN pain #10 tabs 06/03/22 cephalexin 500 mg capsule 500 mg PO QID 7 days #28 caps 12/23/22 fluconazole 150 mg tablet 150 mg PO Q3D 2 doses #2 tabs 12/23/22 Allergies Allergy/AdvReac Type Severity Reaction Status Date / Time No Known Allergies Allergy Verified 04/16/22 20:35 Review of Systems Review of Systems: Constitutional : No Fever, No Chills Cardiovascular : No Chest Pain, No SOB Respiratory : No Cough, No Sputum Gastrointestinal : No Nausea, No Vomiting, No Diarrhea, No abdominal Pain Genitourinary : No Dysuria, No Hematuria Musculoskeletal : No joint pain, No Myalgias, No Joint Swelling Skin : No Skin Lesions, positive skin rash Neuro : No Weakness, No Numbness, No Headache Psych : No Anxiety, No Depression All other systems reviewed and are negative [facility] Past Medical History Attestation statement: The following information was validated with the patient. Medical History Pre-diabetes Social History Social History (Updated 10/15/23 @ 01:09 by Rachel Olmos DO) Alcohol intake: never Patient Tobacco Use Status: Never used Tobacco Advance Directives: No Advance Directives Information Provided: Yes Physical Exam Vital Signs: Vital Signs: Last Vital Signs Temp 97.8 F 12/22/22 23:12 Pulse 88 12/22/22 23:12 Resp 18 12/22/22 23:12 BP 122/69 12/22/22 23:12 Pulse Ox 100 12/22/22 23:12 O2 Del Method Room Air 12/22/22 23:12 BMI result Body Mass Index 38.6 Appearance: Alert. Oriented X3. No acute distress. Eyes: Pupils equal, round and reactive to light. ENT: Pharynx normal. Neck: Normal inspection. Neck supple. CVS: Normal heart rate and rhythm. Pulses normal. Respiratory: No respiratory distress. Breath sounds normal. Abdomen: Soft and nontender. Skin: Skin warm and dry. Normal skin color. R thigh upper redness and warmth hot to touch no fluctuance or abscess noted Extremities: No lower extremity edema. Neuro: Oriented X 3. No motor deficit. No sensory deficit. Medical Decision Making Medical Decision Making MDM Narrative: 27 yo female pre-diabetic here with c/o R upper thigh redness and swelling over 24 hours post insect bite at this time it does appear cellulitis no abscess or crepitus noted - no hx of MRSA will start on cephalexin. Differential Diagnosis Differential Diagnoses: The differential diagnosis associated with the presentation includes local reaction, cellulitis Admission/Observation Consideration of admission/observation: Escalation of care including admission/observation considered can trial outpatient antibiotic course no systemic symptoms Independent Historian Clinical information obtained from an independent historian. History obtained from or confirmed by: Friend External Record Review External record reviewed: Inpatient record Prescription Management I considered prescription management with: Antibiotic Discharge Plan Discharge Clinical Impression: Cellulitis Qualifiers: Site of cellulitis: extremity Site of cellulitis of extremity: lower extremity Laterality: right Qualified Code(s): L03.115 - Cellulitis of right lower limb Patient Disposition: Home, Self-Care Instructions: Cellulitis (ED) Additional Instructions: return for worsening swelling, redness, fevers, or redness seems to be spreading, finish antibiotoics On a cephalosporin?antibiotic, softer bowel movements are to be expected. Call your provider if you move your bowels more than 4 times a day, your bowel movements are almost all liquid, or you get a rash.?? Prescriptions: New cephalexin 500 mg capsule 500 mg PO QID 7 Days Qty: 28 0RF fluconazole 150 mg tablet 150 mg PO Q3D Qty: 2 0RF Rx Instructions: may repeat second dose 72 hrs after first dose if symptoms persist No Action cefuroxime axetil 500 mg tablet 500 mg PO BID Qty: 14 0RF phenazopyridine [Pyridium] 200 mg tablet 200 mg PO TID PRN (Reason: pain) Qty: 6 0RF amoxicillin-pot clavulanate 875-125 mg tablet 1 tab PO Q12H Qty: 14 0RF ibuprofen 600 mg tablet 600 mg PO TID PRN (Reason: pain) Qty: 10 0RF
[2022-12-23] MEDS: cephALEXin 500 MG CAPSULE PO (02:22)
[2022-12-23 02:27] VITALS: BP 117/71; PULSE 86; RESP 16; O2SAT 98
== END 2022-12-23 02:33 | disposition home or self-care (01) ==
PROVIDERS: Emergency Provider Emergency Medicine
DX: L03.115 Cellulitis of right lower limb (principal); Z79.899 Other long term (current) drug therapy
CPT/HCPCS: 99283

== ENCOUNTER 2023-02-05 09:42 | Outpatient (AMB) | payer OTHER, SELFPAY ==
--- NOTE | 2023-02-05 09:45 | MHC.PC.OV ---
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 Transferring care from [facility]). Medical records have not been requested and have not received. Batch Mixer Required: No Hog Room Supervisor: Not Required per policy Accompanied by: Self / Same As Patient Allergies metformin Allergy (Intermediate, Verified 02/05/23 10:08) Unresponsive epidural Allergy (Intermediate, Uncoded 02/05/23 09:57) Hypertension Tobacco use date assessed: 02/05/23 Dental Screening Dental Screen Date: 02/05/23 Did you have a dental visit in the last 12 months?: Yes Did you have a dental problem in the last 6 months where you did not have access to dental care?: No Was dental information given to patient?: Patient has dentist HPI HPI Comments History of Present Illness Details 27-year-old female new patient presents today to establish care. Past medical history significant for type 2 diabetes mellitus, anxiety, depression, hypertension, hyperlipidemia, vitamin-D deficiency, osteoarthritis of bilateral knee. Patient reports ongoing bilateral breast swelling with occasional red spots around nipples at times. Patient reports reported this to PCP in [place] for which she had a breast ultrasound completed however she never received the results of this. Patient reports last experience breast swelling 1 week ago with associated breast tenderness, patient reports occasional light yellow discharge from nipples however she does have bilateral nipple piercings for which she is unsure if the drainage is related to that. Nipple piercings done 2 years ago. Bilateral breast exam completed right breast lump and tenderness noted-between 3-4 o'clock. Patient reports left breast tenderness at 12:00 o'clock, no obvious lump felt. Urgent breast ultrasounds ordered. Patient also reports ongoing palpitations x3 months states she has been seen at the emergency room in [place] multiple times for this. Patient states last occurred 1 1 week ago, denies shortness of breath or syncope. Patient states she does have random chest pains that will be over right or left side of the chest. Patient states it is sharp pain in nature and lasting 30 seconds and it will occur intermittently for few minutes. Patient reports pain is worse with inspiration and his reproducible when she presses on it. Patient states when she went to the emergency room in full order she was treated for muscle spasm. Will order 3 day Holter monitor for further evaluation of palpitations Patient also reports that she is not currently taking any of her medications previously prescribed by her full order primary care provider. Including she is not taking her lisinopril or any of her medications for diabetes. Will obtain fasting blood work and patient will be called with results as well as recommendations on what medications she should continue to take. [facility] Medical History (Updated 02/05/23 @ 10:56 by GARY Pelayo) Palpitations PTSD (post-traumatic stress disorder) Elevated TSH Vertigo Pre-diabetes Surgical History History of hernia surgery History of tubal ligation Family History (Updated 02/05/23 @ 10:10 by GRACIE Alfaro) Other Mental health disorder Social History Housing: Apartment Alcohol intake: never Patient Tobacco Use Status: Never used Tobacco e-Cigarette/Vaping Use: Never Used Second Hand Smoke Exposure: No service: No Current occupational status: unemployed Cognitive needs: No Hearing needs: No Vision needs: Yes (glasses) Questionnaire PHQ-9 Over the last 2 weeks, how often have you been bothered by any of the following problems? 1. Little interest or pleasure in doing things: several days 2. Feeling down, depressed, or hopeless: nearly every day 3. Trouble falling or staying asleep, or sleeping too much: nearly every day (fall asleep and staying asleep) 4. Feeling tired or having little energy: nearly every day 5. Poor appetite or overeating: several days 6. Feeling bad about yourself - or that you are a failure or have let yourself or your family down: nearly every day 7. Trouble concentrating on things, such as reading the newspaper or watching television: not at all 8. Moving or speaking so slowly that other people could have noticed. Or the opposite - being so fidgety or restless that you have been moving around a lot more than usual: not at all 9. Thoughts that you would be better off or of hurting yourself in some way: not at all Total score: 14 Source: Developed by Drs. Beto Bae, Antonella Munoz, Winston Abebe and colleagues, with an educational wm from [employer]. Thrive Questionnaire Date Thrive assessed: 02/05/23 I am a: Patient What is your living situation today?: I have a place to live, but I am worried about losing it in the future Within the past 12 months, did the food you bought not last and you didn't have the money to get more?: Often true Within the past 12 months, did you worry whether your food would run out before you got money to buy more?: Often true Do you have trouble paying for medicines?: No Do you have trouble getting transportation to medical appointments?: No Do you have trouble paying your heating and electricity bill?: No Do you have trouble taking care of your child, family member or friend?: Yes (due to her conditions) Do you have trouble with day-to-day activities such as bathing, preparing meals, shopping, managing finances, etc.?: Yes (due to her condition) Are you currently unemployed and looking for a job?: Yes Are you interested in more education?: No Currently or been in a relationship where the following occur: no concerns reported AUDIT C Alcohol Use Questionnaire (AUDIT-C) 1. How often do you have a drink containing alcohol?: Never Total Score: 0 MONA-7 AMB Questionnaire MONA-7 Date MONA - 7 assessed: 02/05/23 Feeling nervous, anxious, or on edge: 1 = Several days Not being able to stop or control worryin = Nearly every day Worrying too much about different things: 3 = Nearly every day Trouble relaxin = Nearly every day Being so restless that it is hard to sit still: 1 = Several days Becoming easily annoyed or irritable: 3 = Nearly every day Feeling afraid as if something awful might happen: 0 = Not at all Total MONA-7 score (0-4 normal; 5-9 mild; 10-14 moderate; 15-21 severe): 14 Source: Developed by Drs. Beto Bae, Antonella Munoz, Winston Abebe and colleagues, with an educational wm from [employer]. Review of Systems Const Denies chills, Denies fatigue, Denies fever(s) and Denies poor appetite Eyes Denies no additional complaints ENT Reports Normal hearing present Card Denies chest pain, Denies syncope, Reports rapid heart rate and Denies dyspnea Resp Denies cough and Denies dyspnea GI Denies change in stool character, Denies constipation, Denies diarrhea, Denies nausea and Denies vomiting Denies urinary frequency, Reports nipple discharge (light yellow, small amount ), Denies dysuria and Denies urinary urgency Skin/Breast Reports breast swelling, Reports breast skin changes, Reports breast pain, Reports breast mass (right side ) and Reports nipple discharge (light yellow, small amount ) Neuro Reports Normal hearing present, Denies confusion and Denies syncope Psych Denies confusion Endo Denies fatigue Physical exam (Primary Care) Vital Signs: Last Vital Signs Pulse 70 02/05/23 09:48 BP 130/80 02/05/23 09:48 Pulse Ox 98 02/05/23 09:48 Oxygen Delivery Method Room Air 02/05/23 09:48 BMI result Body Mass Index 38.4 Tobacco/Smoking Status: Tobacco use Status Tobacco use date assessed 02/05/23 02/05/23 10:15 Patient Tobacco Use Status Never used Tobacco 02/05/23 10:15 e-Cigarette/Vaping Use Never Used 02/05/23 10:15 PHQ-9: PHQ-9 Score PHQ-9: Total score 14 02/05/23 13:48 Thrive Assessment: Date of Thrive Assessment Date Thrive assessed 02/05/23 02/05/23 10:15 Currently or been in a relationship where the following occur: no concerns reported Const General: No confusion Orientation/consciousness: No confusion HENMT Head: Yes normocephalic and Yes atraumatic Eyes Conjunctivae: conjunctivae normal Chest Chest palpation & inspection: normal inspection of the chest Resp Effort & Inspection: normal respiratory effort Auscultation: clear to auscultation bilaterally, no crackles, no rhonchi and no wheezes Cardio Rate: regular rate Rhythm: regular rhythm Heart sounds: S1 normal heart sound present and S2 normal heart sound present GI Inspection: Yes normal to inspection Neuro General: No confusion Cranial nerves: Yes Normal hearing present Extrem General: No edema Assessment and Plan Assessment & Plan (1) Palpitations: Code(s): R00.2 - Palpitations Plan: Three day Holter monitor ordered to further evaluate palpitations. (2) Bilateral nipple discharge: Code(s): N64.52 - Nipple discharge (3) Lump of right breast: Comment: 0.25cm x 0.25cm mobile lump noted between 3-4 o'clock and tenderness Code(s): N63.10 - Unspecified lump in the right breast, unspecified quadrant Plan: Bilateral breast ultrasounds ordered to further evaluate given patient experiencing bilateral breast swelling, nipple discharge skin changes to bilateral breast and patient was noted to have a 0.25 cmx0.25 palpable mobile mass to right breast between 3-4 o'clock and noted breast tenderness to 12:00 o'clock on left breast. (4) Pain of both breasts: Code(s): N64.4 - Mastodynia (5) Type 2 diabetes mellitus: Comment: DX 2022 Code(s): E11.9 - Type 2 diabetes mellitus without complications Plan: Hemoglobin A1c and fasting glucose ordered. Patient reports she is not currently taking her Trulicity or her glyburide. (6) Hypertension: Code(s): I10 - Essential (primary) hypertension Plan: Patient reports not currently taking her lisinopril. Blood pressure goal less than 140/90, will continue to monitor (7) Hyperlipidemia: Code(s): E78.5 - Hyperlipidemia, unspecified Plan: Fasting lipid panel ordered. LDL goal less than 100. Avoid fried foods, chicken skin, eggs, butter,margarine, pastries and?? red meat. Plan Follow-up in 3 months for complete physical exam or sooner if needed Orders: Orders ECG 3 day holter monitor Today R00.2 - Palpitations Comprehensive [place]. Panel Fast Today E11.9 - Type 2 diabetes mellitus without complications Lipid Panel Today Z13.220 - Encounter for screening for lipoid disorders US breast LT complete Today N64.52 - Nipple discharge US breast RT complete Today N63.10 - Unspecified lump in the right breast, unspecified quadrant, N64.4 - Mastodynia, N64.52 - Nipple discharge Complete Blood Count Auto Diff Today Z13.0 - Encounter for screening for diseases of the blood and blood-forming organs and certain disorders involving the immune mechanism TSH reflex Free T4 Today Z13.29 - Encounter for screening for other suspected endocrine disorder Vitamin D 25-OH Total Today E55.9 - Vitamin D deficiency, unspecified Hemoglobin A1c Today E11.9 - Type 2 diabetes mellitus without complications Coding Level of Care Code New Pt Level 4 (48485) Diagnoses Palpitations R00.2 Bilateral nipple discharge N64.52 Lump of right breast N63.10 Pain of both breasts N64.4 Type 2 diabetes mellitus E11.9 Hypertension I10 Hyperlipidemia E78.5
[2023-02-05 09:48] VITALS: BP 130/80; PULSE 70; O2SAT 98; BMI 38.4
== END 2023-02-05 10:48 | disposition home or self-care (01) ==
PROVIDERS: Visit Provider Nurse Practitioner Family
DX: E11.9 Type 2 diabetes mellitus without complications (principal); R00.2 Palpitations; N64.52 Nipple discharge; N63.14 Unspecified lump in the right breast, lower inner quadrant; N64.4 Mastodynia; I10 Essential (primary) hypertension; E78.5 Hyperlipidemia, unspecified
CPT/HCPCS: 99204

== ENCOUNTER 2023-02-05 10:56 | Outpatient (REF) | payer OTHER, SELFPAY ==
[2023-02-05 11:21] LABS: MANUAL DIFF FLAG NO
[2023-02-05 12:06] LABS: Basophils Percent Auto 0.3 % (0-2); Eosinophils Absolute Auto 0.2 X10*3/uL (0.0-0.4); Eosinophils Percent Auto 2.2 % (0-4); Hematocrit 33.9 % (37.0-47.0); Hemoglobin 10.7 g/dl (12.0-16.0); Imm Gran Abs Auto 0.04 X10*3/uL (0.00-0.03); Imm Gran Pct Auto 0.4 % (0.0-0.4); Lymphocytes Absolute Auto 3.3 X10*3/uL (1.2-4.9); Lymphocytes Percent Auto 33.8 % (20-40); Mean Corpuscular HGB Conc 31.6 g/dl (31.0-35.0); Mean Corpuscular Hemoglobin 25.2 pg (27.0-33.0); Mean Corpuscular Volume 79.8 fL (80.0-98.0); Monocytes Absolute Auto 0.5 X10*3/uL (0.1-1.2); Monocytes Percent Auto 5.4 % (2-11); Neutrophils Absolute Auto 5.7 x10*3/uL (2.0-8.3); Neutrophils Percent Auto 57.9 % (45-73); Platelet Count 422 X10*3/uL (160-400); Red Blood Count 4.25 X10*6/uL (4.20-5.50); White Blood Count 9.8 X10*3/uL (4.8-10.8)
[2023-02-05 12:30] LABS: Estimated Average Glucose 117 mg/dL; Hemoglobin A1c % 5.7 % (<6.0)
[2023-02-05 12:42] LABS: Alanine Aminotransferase 21 U/L (0-31); Albumin Level 4.3 g/dL (3.5-5.0); Alkaline Phosphatase 69 U/L (39-117); Anion Gap 9 (12-20); Aspartate Amino Transferase 19 U/L (5-31); Bilirubin Total 0.3 mg/dL (0.0-1.0); Blood Urea Nitrogen 8 mg/dL (9-16); Calcium 9.1 mg/dL (8.4-10.2); Carbon Dioxide 26 mmol/L (22-29); Chloride 108 mmol/L (96-108); Cholesterol 147 mg/dL (<200); Estimated Glomerular Filt Rate > 60; Glucose Fasting 93 mg/dL (60-99); HDL Cholesterol 31 mg/dL (>40); LDL Cholesterol Calculated 98 mg/dL (<100); Potassium 3.9 mmol/L (3.3-5.1); Sodium 139 mmol/L (135-145); Total Protein 8.2 g/dL (6.5-8.0); Triglycerides 93 mg/dL (<150)
[2023-02-05 12:57] LABS: TSH reflex Free T4 2.84 uIU/mL (0.32-4.0); Vitamin D 25-OH Total 12.1 ng/mL (>30)
== END 2023-02-05 10:57 | disposition home or self-care (01) ==
LOC: HO.LAB 10:56
PROVIDERS: PCP Nurse Practitioner Family; Visit Provider Nurse Practitioner Family
DX: Z13.29 Encounter for screening for other suspected endocrine disorder (principal); Z13.220 Encounter for screening for lipoid disorders; Z13.0 Encounter for screening for diseases of the blood and blood-forming organs and certain disorders involving the immune mechanism; E11.9 Type 2 diabetes mellitus without complications; E55.9 Vitamin D deficiency, unspecified
CPT/HCPCS: 36415; 80053; 80061; 82306; 83036; 84443; 85025

== ENCOUNTER 2023-02-08 09:48 | Outpatient (REF) | payer OTHER, SELFPAY ==
--- NOTE | ~2023-02-08 | US_ITS ---
EXAMINATION: US DIAGNOSTIC ULTRASOUND BREAST, BILATERAL CLINICAL INFORMATION: Bilateral yellowish nipple discharge. 27-year-old female. COMPARISON: None available. TECHNIQUE: Ultrasound of the both breasts was performed with attention to the retroareolar regions with real-time harrington scale imaging and color Doppler. FINDINGS: There is no focal suspicious finding. There is no solid mass, architectural abnormality, duct ectasia, or edema in the soft tissue planes. There is no ductal filling defect on either side. US/US breast BI limited mamm only IMPRESSION: No findings suspicious for malignancy on either side, nor are there findings to explain nipple discharge on either side. Recommend clinical management of patient's symptoms. ASSESSMENT: BI-RADS 1: Negative RECOMMENDATION: 1. Patient should be managed based on the clinical impression.
== END 2023-02-08 09:49 | disposition home or self-care (01) ==
LOC: HO.MAMMO 09:48
PROVIDERS: PCP Nurse Practitioner Family; Visit Provider Nurse Practitioner Family
DX: N64.52 Nipple discharge (principal)
CPT/HCPCS: 76642

== ENCOUNTER → 2023-02-08 10:00 | Outpatient (BNV) | payer OTHER, SELFPAY | PROVIDERS: PCP Nurse Practitioner Family; Visit Provider Radiology Diagnostic Radiology | DX: N64.52 Nipple discharge (principal) | CPT/HCPCS: 76642 ==

== ENCOUNTER → 2023-02-22 11:23 | Outpatient (REF) | payer OTHER, SELFPAY ==
--- NOTE | 2023-02-22 11:25 | HM_ITS ---
Conclusion: 1. Patient was monitored for total period of 2 days 2. Baseline was normal sinus rhythm with average heart of 83 beats per minute 3. No significant pauses or arrhythmias noted 4. No patient reported events MTDD
== END ==
LOC: HO.CARD 11:23
PROVIDERS: PCP Nurse Practitioner Family; Visit Provider Nurse Practitioner Family
DX: R00.2 Palpitations (principal)
CPT/HCPCS: 93225

== ENCOUNTER → 2023-02-22 11:25 | Outpatient (BNV) | payer OTHER, SELFPAY | PROVIDERS: PCP Nurse Practitioner Family; Visit Provider Internal Medicine Cardiovascular Disease | DX: R00.2 Palpitations (principal) | CPT/HCPCS: 93227 ==

== ENCOUNTER 2023-03-25 13:36 | Outpatient (AMB) | payer OTHER, SELFPAY ==
--- NOTE | 2023-03-25 13:54 | MHC.PC.OV ---
Vital Signs 03/25/23 13:56 Height 5 ft 4 in Weight 225 lb 2 oz BMI 38.6 BP 124/76 Blood Pressure Location Rt brachial Position Sitting Intake Visit Reasons: eye/podiatry referrals, discuss meds Intake Note: Patient is here today for transfer of care. Patient is here to follow up on med review, podiatry referral, eye. Filter Screen Cleaner Required: No Research And Development Researcher: Present Accompanied by: Nephew or Niece Allergies metformin Allergy (Intermediate, Verified 03/25/23 15:09) Unresponsive epidural Allergy (Intermediate, Uncoded 03/25/23 15:09) Hypertension Medication List - Last Reconciled 03/25/23 by Anurag Cerda MD ergocalciferol (vitamin D2) 1,250 mcg PO QWEEK fluoxetine 20 mg PO DAILY trazodone 50 mg PO BEDTIME Tobacco use date assessed: 03/25/23 Dental Screening Dental Screen Date: 03/25/23 Did you have a dental visit in the last 12 months?: Yes Did you have a dental problem in the last 6 months where you did not have access to dental care?: No Was dental information given to patient?: Patient has dentist HPI eye/podiatry referrals, discuss meds HPI Details 27-year-old female presents to the office to discuss her medical issues. I am assuming her care today as her primary care provider has left the practice. Patient reports that she recently moved from [place] and has many medical problems. She recently had an ultrasound on both her breasts and the lumps were benign. She also had a heart monitor placed which was normal. Patient gives history of anxiety, depression, diabetes. She is complaining of severe pain in the right foot which is worse on standing. Patient is not working. Gives no history of substance use. [facility] Medical History (Updated 03/25/23 @ 15:17 by Anurag Cerda MD) Generalized anxiety disorder Palpitations PTSD (post-traumatic stress disorder) Elevated TSH Vertigo Pre-diabetes Surgical History History of hernia surgery History of tubal ligation Family History Other Mental health disorder Social History Housing: Apartment Alcohol intake: never Patient Tobacco Use Status: Never used Tobacco e-Cigarette/Vaping Use: Never Used Second Hand Smoke Exposure: No service: No Current occupational status: unemployed Cognitive needs: No Hearing needs: No Vision needs: Yes (glasses) Questionnaire PHQ-9 Over the last 2 weeks, how often have you been bothered by any of the following problems? 1. Little interest or pleasure in doing things: several days 2. Feeling down, depressed, or hopeless: several days 3. Trouble falling or staying asleep, or sleeping too much: nearly every day 4. Feeling tired or having little energy: several days 5. Poor appetite or overeating: nearly every day 6. Feeling bad about yourself - or that you are a failure or have let yourself or your family down: several days 7. Trouble concentrating on things, such as reading the newspaper or watching television: several days 8. Moving or speaking so slowly that other people could have noticed. Or the opposite - being so fidgety or restless that you have been moving around a lot more than usual: not at all 9. Thoughts that you would be better off or of hurting yourself in some way: not at all Total score: 11 Depression Screening Interpretation: Positive Depression Screening Follow-up: Existing condition and In treatment Depression Screening Done: Yes Source: Developed by Drs. Beto Bae, Antonella Munoz, Winston Abebe and colleagues, with an educational wm from [employer]. Thrive Questionnaire Date Thrive assessed: 03/25/23 I am a: Patient What is your living situation today?: I have a steady place to live Within the past 12 months, did the food you bought not last and you didn't have the money to get more?: Never true Within the past 12 months, did you worry whether your food would run out before you got money to buy more?: Never true Do you have trouble paying for medicines?: No Do you have trouble getting transportation to medical appointments?: No Do you have trouble paying your heating and electricity bill?: No Do you have trouble taking care of your child, family member or friend?: No Do you have trouble with day-to-day activities such as bathing, preparing meals, shopping, managing finances, etc.?: No Are you currently unemployed and looking for a job?: No Are you interested in more education?: No AUDIT C Alcohol Use Questionnaire (AUDIT-C) 1. How often do you have a drink containing alcohol?: Never Total Score: 0 MONA-7 AMB Questionnaire MONA-7 Date MONA - 7 assessed: 03/25/23 Feeling nervous, anxious, or on edge: 3 = Nearly every day Not being able to stop or control worryin = Nearly every day Worrying too much about different things: 3 = Nearly every day Trouble relaxin = Nearly every day Being so restless that it is hard to sit still: 3 = Nearly every day Becoming easily annoyed or irritable: 3 = Nearly every day Feeling afraid as if something awful might happen: 1 = Several days Total MONA-7 score (0-4 normal; 5-9 mild; 10-14 moderate; 15-21 severe): 19 Source: Developed by Drs. Beto Bae, Antonella Munoz, Winston Abebe and colleagues, with an educational wm from [employer]. Physical exam (Primary Care) Vital Signs: Last Vital Signs BP 124/76 03/25/23 13:56 Care Plan Goal for BP management: Blood pressure is in range. BMI result Body Mass Index 38.6 BMI Assessment/Plan discussion: High (1 lb per week weight loss suggested. ) BMI High, discussed plan: lifestyle, weight reduction and dietary Tobacco/Smoking Status: Tobacco use Status Tobacco use date assessed 03/25/23 03/25/23 14:07 Patient Tobacco Use Status Never used Tobacco 03/25/23 14:07 e-Cigarette/Vaping Use Never Used 03/25/23 14:07 PHQ-9: PHQ-9 Score PHQ-9: Total score 11 03/25/23 14:07 Depression Screening Interpretation: Positive Depression Screening Follow-up: Existing condition and In treatment Thrive Assessment: Date of Thrive Assessment Date Thrive assessed 03/25/23 03/25/23 14:07 Const General: cooperative and healthy appearing Nutritional Appearance: well nourished Orientation/consciousness: patient oriented x3 Limitations: no limitations HENMT Head: Yes normal to inspection Eyes General: appearance normal, both eyes and all related structures Neck Neck: Yes normal visual inspection Chest Chest palpation & inspection: normal palpation of entire chest wall Resp Effort & Inspection: normal respiratory effort Neuro General: patient oriented x3 Results AMB Hemoglobin A1c AMB Hemoglobin A1c 5.6 % Last Edit by GRACIE Alfaro on 03/25/23 14:30 Results Reviewed Results Reviewed: Laboratory Last Values Hgb A1c (Clinic) 5.6 % (4.0-6.0) 03/25/23 14:10 Assessment and Plan Assessment & Plan (1) Type 2 diabetes mellitus: Comment: DX 2022 Code(s): E11.9 - Type 2 diabetes mellitus without complications Plan: Patient has an A1c of 5.6. Metformin, Trulicity, sulfonylurea all have been discontinued. Currently on no diabetes medications. Will continue to monitor the blood sugars. (2) Generalized anxiety disorder: Code(s): F41.1 - Generalized anxiety disorder Plan: Prozac and trazodone to be continued. A referral for a therapist and a psychiatrist has been placed. Orders: Orders AMB Hemoglobin A1c Today E11.9 - Type 2 diabetes mellitus without complications Medications: New fluoxetine 20 mg PO DAILY 90 caps 1RF trazodone 50 mg PO BEDTIME 90 tabs 1RF Refilled ergocalciferol (vitamin D2) 1,250 mcg PO QWEEK 30 caps 1RF E55.9 - Vitamin D deficiency, unspecified Coding Level of Care Code Est Pt Level 4 (79465) Diagnoses Type 2 diabetes mellitus E11.9 Generalized anxiety disorder F41.1
[2023-03-25 13:56] VITALS: BP 124/76; BMI 38.6
== END 2023-03-25 15:54 | disposition home or self-care (01) ==
PROVIDERS: PCP Nurse Practitioner Family; Visit Provider Internal Medicine
DX: E11.9 Type 2 diabetes mellitus without complications (principal); F41.1 Generalized anxiety disorder
CPT/HCPCS: 83036; 99214